=== PATIENT | male | born 1950 | race African-American/Black ===

== ENCOUNTER 2023-11-04 16:49 | Emergency (ER) | payer OTHER ==
[2023-11-04] MEDS ORDERED: HYDROcodone/Acetaminophen 10/325 mg Tablet ONE (17:13)
[2023-11-04 17:46] LABS: Hematocrit 32.8 % (42.0-52.0); Hemoglobin 9.6 g/dL (14.0-18.0); Mean Corpuscular Volume 76.2 fl (78.0-98.0); Red Blood Cell (RBC) Count 4.31 mill/uL (4.70-6.10)
[2023-11-04 17:47] LABS: #Eosinphils 0.1 thou/uL (0.0-0.7); #Lymphocytes 0.7 thou/uL (1.20-3.40); #Monocytes 0.8 thou/uL (0.11-0.59); #Neutrophils 5.3 thou/uL (1.40-6.50); %Basophils 0.7 % (0.0-1.0); %Eosinophils 1.2 % (0.0-10.0); %Lymphocytes 10.6 % (21.0-51.0); %Monocytes 11.4 % (0.0-10.0); %Neutrophils 76.1 % (42.0-75.0); Manual Diff?? NO; Mean Corpuscular HGB CONC 29.2 g/dL (32.0-36.0); Mean Corpuscular Hemoglobin 22.2 pg (27.0-31.0); Mean Platelet Volume 7.5 fL (7.4-10.4); Platelet Count 276 10x3/uL (130-400)
[2023-11-04 17:55] LABS: ALT (SGPT) 10 U/L (8-55); AST (SGOT) 12 U/L (5-34); Albumin 4.1 g/dL (3.4-4.8); Alkaline Phosphatase 42 U/L (40-110); Anion Gap 16 mmol/L (10-20); BUN (Urea Nitrogen) 45 mg/dL (8.4-25.7); Bilirubin, Total 0.3 mg/dL (0.2-1.2); Calc. Creatinine Clearance 0 mL/min (70-130); Calcium 9.5 mg/dL (7.8-10.44); Carbon Dioxide 25 mmol/L (23-31); Chloride 104 mmol/L (98-107); Estimated GFR 31; Globulin 3.6 g/dL (2.4-3.5); Glucose 134 mg/dL (83-110); Potassium 5.9 mmol/L (3.5-5.1); Protein, Total 7.7 g/dL (5.8-8.1); Sodium 139 mmol/L (136-145)
[2023-11-04] MEDS ORDERED: Sodium Chloride 0.9% 1,000 ML ONE (18:45)
[2023-11-04] MEDS ORDERED: Cefepime 2 GM VIAL ONE (18:45)
[2023-11-04] MEDS ORDERED: Sodium Chloride 0.9% 100 ML ONE (18:45)
[2023-11-04] MEDS ORDERED: Morphine 4 MG/ML VIAL ONE (18:51)
[2023-11-04 19:10] LABS: Potassium 5.2 mmol/L (3.5-5.1)
[2023-11-04] MEDS ORDERED: Sodium Chloride 0.9% 500 ML ONE (19:20)
[2023-11-04] MEDS ORDERED: Vancomycin HCl 500 MG VIAL ONE (19:20)
[2023-11-04] MEDS ORDERED: Vancomycin 1 GM VIAL ONE (19:20)
== END 2023-11-04 23:12 | disposition short-term general hospital (02) ==
LOC: NAV ERS 16:49 → EEVIPCON 16:49 → NAV ERS 23:12
DX: E11.621 Type 2 diabetes mellitus with foot ulcer (principal); L97.519 Non-pressure chronic ulcer of other part of right foot with unspecified severity; E87.20 Acidosis, unspecified; I13.0 Hypertensive heart and chronic kidney disease with heart failure and stage 1 through stage 4 chronic kidney disease, or unspecified chronic kidney disease; E11.22 Type 2 diabetes mellitus with diabetic chronic kidney disease; N18.9 Chronic kidney disease, unspecified; I50.9 Heart failure, unspecified; Z79.82 Long term (current) use of aspirin; Z79.899 Other long term (current) drug therapy; Z79.4 Long term (current) use of insulin
CPT/HCPCS: 36415; 80053; 83605; 85025; 86140; 87040; 94760; 96365; 96366; 96375; J0692; J2270; J3370; J3490; J7030; J7050